=== PATIENT | female | born 1990 | race Caucasian/White ===

== ENCOUNTER 2020-01-04 12:26 | Emergency (ER) | payer BC ==
[~2020-01-04] VITALS: Ht 144.7 cm; Wt 68.0 kg
[2020-01-04] MEDS ORDERED: TYLENOL325 M1 PO (14:39)
[2020-01-04] MEDS ORDERED: NAPROXEN250 MG PO (14:39)
== END 2020-01-04 14:58 | disposition home or self-care (01) ==
LOC: ED 12:26
DX: S90.32XA Contusion of left foot, initial encounter (principal); S99.912A Unspecified injury of left ankle, initial encounter; F17.200 Nicotine dependence, unspecified, uncomplicated; X50.1XXA Overexertion from prolonged static or awkward postures, initial encounter; Y93.89 Activity, other specified; Y92.89 Other specified places as the place of occurrence of the external cause; Y99.8 Other external cause status